=== PATIENT | male | born 1960 | race Caucasian/White ===

== ENCOUNTER → 2016-10-10 | Outpatient (CLI) | payer BC, OTHER ==
--- NOTE | ~2016-10-10 | PUL ---
PATIENT'S NAME: KEISHA WITT [facility] AGE: 56 Y [address] ROOM: [place] [address] LOCATION: [facility] ADMIT DATE: 10/10/2016 Pulmonary DISCHARGE DATE: FAMILY PHYSICIAN: Wiley Shore MD ATTENDING PHYSICIAN: Wiley Shore NAME OF PROCEDURE: Sleep study PROCEDURE DATE: 10/10/16 TECH: THALIA Costello TEST #: [facility] [place]# [id number] TECHNICAL PARAMETERS: The patient was studied using [employer] 10/20 measuring system. While the patient was studied, there was continuous monitoring of EEG (8 leads), EOG (2 leads), EKG (3 leads), submental EMG (3 leads), tibial (4 leads), respiratory inductive plethysmography (RIP) for thoracic and abdominal effort, oral and nasal airflow with a thermocouple and pressure transducer, and oximetry. The cell phone repair technician also performed visual and auditory observations noting things like body position, patient's status, breath sounds, artifact, snoring level and patient comments. Continuous sound was monitored using a 2-way speaker system and video monitoring was performed using an infrared camera. Review of the entire study was performed epoch by epoch utilizing a single epoch and multiple epoch capability sleep system. MEDICAL HISTORY: Patient is a 56-year-old overweight gentleman with daytime sleepiness and snoring. SLEEP STAGE SUMMARY: The patient was studied for 440 minutes of which he slept 387 minutes. He fell asleep in 6 minutes and slept for 88% of the night. Sleep architecture revealed a decline in slow wave sleep. RESPIRATORY SUMMARY: This study was done to titrate CPAP which was started at 6 cm and titrated to 14 cm with good control of the respiratory events. EKG SUMMARY: No dysrhythmias were noted. LIMB MOVEMENT SUMMARY: No clinically relevant periodic limb movements were noted. SUMMARY: Obstructive sleep apnea responsive to CPAP at 14 cm. PLAN: Patient will receive results from the ordering provider suggest CPAP at 14 cm. PATIENT'S NAME: KEISHA WITT [facility] AGE: 56 Y [address] ROOM: [place] [address] LOCATION: [facility] ADMIT DATE: 10/10/2016 Pulmonary DISCHARGE DATE: FAMILY PHYSICIAN: Wiley Shore MD ATTENDING PHYSICIAN: Wiley Shore MD JEANNIE DALEY /[id number] dtt: 10/19/16 0721 Jarrod David E. dtd: 10/15/16 1141
== END | disposition disaster alternative care site (69) ==
LOC: GSLP 20:09
DX: G47.33 Obstructive sleep apnea (adult) (pediatric) (principal); G47.10 Hypersomnia, unspecified